=== PATIENT | male | born 1965 | race Caucasian/White ===

== ENCOUNTER 2020-04-25 | Outpatient (CLI) | payer OTHER, SELFPAY | END 2020-04-26 13:03 | disposition home or self-care (01) | LOC: LBO 05-18 11:33 | PROVIDERS: Visit Provider Preventive Medicine Undersea and Hyperbaric Medicine | DX: C01 Malignant neoplasm of base of tongue (principal) | CPT/HCPCS: 36415; 82565 ==

== ENCOUNTER → 2020-06-12 02:25 | Outpatient (CLI) | payer OTHER, SELFPAY ==
--- NOTE | 2020-06-12 14:40 | ST.MBS_ITS ---
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 Postoperative course was complicated by severe dysphagia ultimately requiring PEG placement. Adjuvant radiotherapy completed 05/09/2020. PMHx: Degenerative disc disease, lumbar; condyloma acuminatum; Lyme disease; hyperlipidemia; hemangioma of intracranial structures; chronic fatigue syndrome; degeneration of cervical intervertebral disc; androgen deficiency; daily chronic headache; insomnia; cancer of base of tongue/malignant neoplasm of tongue Previous Imaging for Comparison: 02/15/2020 - VFSE/MBSS while inpatient at [facility] s/p TORS of BOT and SCC neck dissection SUBJECTIVE: Continues to report difficulties with swallow initiation; reports success with LEVEL 4 IDDSI solid (pudding) over past few days but has also described difficulties with swallow initiation as inconsistent, not related to trialed texture per se; reports 'burning sensation' at level of hypopharynx/larynx durin g study today, endorses that this sensation also occurs at times with po intake over past few weeks. MDADI: Global score: 2 Physical-2.6 Emotional-3 Functional-3 Scores range from 1(extremely low functioning )-5(extremely high functioning) Composite score: 55.8 Scores range from 20(extremely low functioning )-100(extremely high functioning) OBJECTIVE: Videofluoroscopic Swallow Study (VFSS) was conducted in the lateral and [id number] projections by Speech-Language Pathologist, in collaboration with Radiologist, to evaluate oropharyngeal swallow function. Anatomic view under fluoroscopy: [facility] PO barium contrast trials: Oral barium water soluble contrast was administered. Specifically, Varibar thin liquid IDDSI Level 0 (40% w/v), Varibar nectar thick/mildly thick liquid IDDSI Level 2 (40% w/v), Varibar thin honey/liquidised/moderately-thick IDDSI Level 3 (40% w/v), Varibar pudding/pureed/extremely thick IDDSI Level 4 (40% w/v), tushar cracker coated in 3 mL Varibar pudding; 13 mm barium tablet - IDDSI Level 7 Regular Solid. PHYSIOLOGIC FINDINGS Oral Phase 1 Lip Closure: 0 No labial escape 2 Tongue Control: 0 cohesive bolus between tongue to palatal seal 3 Bolus Preparation/Mastication: 1 slow prolonged mashing/chewing with complete recollection 4 Bolus Transport/Lingual Motion: 0 brisk tongue movement 5 Oral residue: 1 trace residue lining oral structures 6 Initiation of pharyngeal swallow: 3 bolus head in pyriforms Pharyngeal Phase 7 Velar Elevation: 1 trace-mild column of contrast between soft palate and pharyngeal wall 8 Laryngeal Elevation: 1 minimal partial movement of thyroid cartilage with partial approximation of to epiglottic petiole 9 Anterior Hyoid Excursion: 1 partial anterior movement 10 Epiglottic Movement: 2 no inversion 11 Laryngeal Vestibule Closure: 1 incomplete; narrow column of contrast in laryngeal vestibule during swallow 12 Pharyngeal Stripping Wave: 1 present; diminished 13 Pharyngeal Contraction: 1 incomplete (pseudodiverticulae) 14 PES/UES Openin complete distension and complete duration; no obstruction of flow 15 Tongue Base Retraction: 3 wide column of contrast between TB/PW 16 Pharyngeal residue: 2 collection of residue within or on pharyngeal structures Juliann Pharyngeal Residue Severity Rating Scale (YPRS) (Mayra, et al, 2015) Vallecula Residue Severity IV Moderate 25-50% Epiglottic ligament covered Pyriform Sinus Residue Severity II Trace 1-5% Trace coating of the mucosa Esophageal Phase (partial) NOTE: This study was performed for interpretation only of the oropharyngeal and pharyngoesophageal domains of swallowing. It is not intended to diagnose any other radiologic abnormalities or substitute for a formal esophagram study. 17 Esophageal Clearance Upright Position: 0 - complete clearance, esophageal coating (question of multiple ?hypertrophies noted along cervical esophagus during swallow, anteriorly at C2 and both anteriorly+posteriorly at C5; please see series image #27) Overall 8-Point Penetration-Aspiration Scale (PAS) (Rosenbek, et al, 1996) 2 - Material enters the airway, remains above the vocal folds, and is ejected from the airway. Clinical Indicator(s) of Prandial/Postprandial Aspiration: N/A; No aspiration noted throughout study DIGEST Scale Rating (O'Romario, et al, 1999) DIGEST Score: Safety Grade 0 / Efficiency Grade 1 = 1, Overall Mild Pharyngeal Impairment (0=No Impairment, 1=Mild, 2=Moderate, 3=Severe, 4=Life Threatening) The Dynamic Imaging Grade of Swallowing Toxicity (DIGEST) Score represents a set of structured criteria primarily validated for head and neck cancer patients to grade the interaction of safety, efficiency, and overall impairment of the pharyngeal swallow, meant to assist in prioritization of targets for dysphagia treatment planning. (Edilberto, et al. Cancer. 2017;123(1):62-70) Note: Above score represents swallowing events without application of compensatory techniques Trialed Compensatory Swallow Strategies & Outcome: Maneuvers Volitional Throat Clear - successful Secondary saliva swallow x 2-3 - successful in reducing amount of vallecular residue Bolus Modifications Delivery/Alternating Consistencies - Wash with thin liquid - successful in reducing amount of vallecular residue Delivery/Via Straw - successful; (-) aspiration, only trace penetration Reduced Volume - successful Reduced Rate of Intake - no notable change Increased Viscosity - increases amount of vallecular residue, (-) penetration Dysphagia Outcome and Severity Scale (TAVO) LEVEL 3 - Full PO: modified diet and/or independence - Moderate dysphagia; 2 or more diet consistencies restricted, strategies encouraged IMPRESSIONS: Overall mild-moderate oropharyngeal dysphagia s/p extensive HNC surgical hx in February 2020 and more recently completed course of BASKET HAND WEAVER in early May 2020 with mild improvements relative to VFSE/MBSS (02/2020; available study images reviewed personally by this clinician, however given minimal amount of contrast tolerated by patient, comparison is limited); current oral phase deficits charac terized by delayed swallow initiation (bolus head in pyriform sinus during subsequent swallows, otherwise initiated with bolus head in valleculae); significant pharyngeal phase deficits characterized primarily by reduced BOT retraction and absent epiglottic inversion; reduced velar elevation, partial hyolaryngeal excursion, diminished laryngeal elevation, and reduced pharyngeal constriction also contribute to resulting penetration of less viscous consistencies during the swallow and moderate vallecular+trace pyriform sinus residue, which increases with more viscous consistencies. Of note, ?hypertrophies noted along cervical esophagus during swallow, anteriorly at C2 and both anteriorly+posteriorly at C5; please see series image #27 Patient is sensate to all residue, demonstrates volitional throat clear with penetration episodes and subsequent volitional secondary swallow(s); vocal quality does become effected over time (gurgly, wet sounding) as trials progres s, however resolves with either volitional throat clear(s) or secondary dry swallows. Swallow safety is surprisingly preserved given level of pharyngeal phase deficit(s) as outlined above; swallow efficiency is impaired, and complicated by continued report of odynophagia, 'burning sensation', and jaw tightening with prolonged mastication/trismus. Patient appears to be at low-moderate risk for potential aspiration PNA, pulmonary compromise and moderate risk for malnutrition, low risk for dehydration; diet modification, non-oral nutrition continues to be indicated at this time. Swallow prognosis is good-fair given age, radiation hx with expected level of radiation fibrosis, anatomical changes s/p HNC surgeries as outlined above, and pending patient/carepartner training in risk management as outlined. Patient appears to be a good candidate for behavioral swallow rehabilitation per motivational interview. PLAN: Diet recommendation: IDDSI 4-Pureed Solids, 0-Thin Liquids Diet texture modification is per patient's preference; to be adjusted at patient's discretion & collaboration with care team. Risk Management: Small sips, approx 5mL / teaspoon graduating to 10 mL Alternate solids/liquids as able Multiple effortful swallows per bolus (3-4x) to encourage clearance of pharyngeal stasis/residue and encourage pharyngeal muscle strengthening Control risk factors for aspiration pneumonia via (a) thorough oral hygiene & (b) maintaining physical mobility as tolerated Specialist referrals: N/A Ancillary tests: N/A Therapy: Recommend subsequent outpatient session with DATA OPERATIONS DIRECTOR to review results of today's exam and develop treatment plan as appropriate. May address the following: prerequisites for MDTP, HEP with targeted swallow exercise(s), continued progressivation of trismus therapy program Goal: N/A Follow-up exam: N/A Thank you for allowing me to take part in this patient's care. Please feel free to contact me with any questions/concerns. Nicole Magaña MA [facility]-DATA OPERATIONS DIRECTOR Speech Language Pathologist
--- NOTE | 2020-06-12 15:12 | DI.RAD_ITS ---
TECHNIQUE: Modified barium swallow was performed in conjunction with speech pathology. CONTRAST MATERIAL: Oral barium Oral water soluble contrast was administered. COMPARISON: No exams were available for comparison FINDINGS: This is not a formal esophagram. Fluoroscopy was provided during swallowing mechanism study performed our department in conjunction with the speech therapist. There did not appear to be obvious aspirati on during this study. Please see report by speech therapist IMPRESSION: No evidence of obvious aspiration. . . . Total fluoroscopy time 2 minutes and 48 seconds; cumulative dose 15.9 mGy RADIATION DOSE DELIVERED: Total fluoroscopy time 2 minutes 48 seconds; Cumulative dose 15.9 mGy
[2020-06-12] MEDS: Barium Sulfate 700 MG TAB PO (15:19)
[2020-06-12] MEDS: Barium Sulfate Oral Paste 40% W/V 230 ML TUBE 70 ML PO (15:21)
[2020-06-12] MEDS: Barium Sulfate 40% W/V 1500 CPS 250 ML BTL 50 ML PO (15:23)
[2020-06-12] MEDS: Barium Sulfate 40% W/V 240 ML BTL PO (15:24)
[2020-06-12] MEDS: Barium Sulfate 81% w/w for Oral Suspension 148 GM BTL 100 GM PO (15:26)
== END ==
PROVIDERS: PCP Physician Assistant; Visit Provider Speech-Language Pathologist
DX: R13.12 Dysphagia, oropharyngeal phase (principal); C01 Malignant neoplasm of base of tongue
CPT/HCPCS: 92526; 92611; 74221

== ENCOUNTER 2020-07-12 12:18 | Outpatient (CLI) | payer OTHER, SELFPAY ==
[2020-07-12 12:50] LABS: Abs Immature Grans 0.01 10^3/uL (0.0-0.06); Absolute Basophil Count 0.01 10^3/uL (0.0-0.2); Absolute Eosinophil Count 0.05 10^3/uL (0.0-0.7); Absolute Lymphocyte Count 0.61 10^3/uL (1.2-3.4); Absolute Monocyte Count 0.43 10^3/uL (0.1-0.8); Absolute Neutrophil Count 4.01 10^3/uL (1.2-6.7); Basophils % 0.2; HGB 13.9 g/dL (13.5-17.5); Immature Grans % 0.2; Lymphocytes % 11.9; MCHC 34.8 % (32.0-36.0); MCV 89.3 fL (80-95); MPV 9.4 fL (8.0-11.0); Monocytes % 8.4; Neutrophils % 78.3; Nucleated RBC 0 %; Platelet Count 254 10^3/uL (130-400); RBC 4.48 10^6/uL (4.36-5.78); RDW 11.9 % (11.8-14.1); RDW-SD 38.3 fL; WBC 5.12 10^3/uL (4.4-10.8)
[2020-07-12 13:05] LABS: ALT 38 U/L (16-63); AST 17 U/L (15-37); Albumin 3.6 g/dL (3.4-5.0); Alkaline Phosphatase 94 U/L (46-116); Anion Gap 6.3 mmol/L (3-11); BUN 26 mg/dL (7-18); Bilirubin, Total 0.4 mg/dL (0.2-1.0); CO2 29.7 mmol/L (21.0-32.0); CREATININE 0.9 mg/dL (0.70-1.30); Calcium 8.5 mg/dL (8.5-10.1); Chloride 107 mmol/L (98-107); Glucose 74 mg/dL (74-106); Magnesium 2.2 mg/dL (1.8-2.4); Potassium 4.3 mmol/L (3.5-5.1); Sodium 143 mmol/L (136-145); Total Protein 7.3 g/dL (6.4-8.2)
== END 2020-07-12 12:19 | disposition home or self-care (01) ==
LOC: LBO 12:20
PROVIDERS: PCP Physician Assistant; Visit Provider Preventive Medicine Undersea and Hyperbaric Medicine
DX: C01 Malignant neoplasm of base of tongue (principal)
CPT/HCPCS: 36415; 80053; 83735; 85025

== ENCOUNTER 2021-02-27 14:55 | Outpatient (CLI) | payer OTHER, SELFPAY ==
[2021-02-27 15:47] LABS: TSH 2.09 uIU/mL (0.36-3.74)
== END 2021-02-27 14:56 | disposition home or self-care (01) ==
LOC: LBO 14:57
PROVIDERS: PCP Physician Assistant; Visit Provider Preventive Medicine Undersea and Hyperbaric Medicine
DX: C01 Malignant neoplasm of base of tongue (principal)
CPT/HCPCS: 36415; 84443

== ENCOUNTER 2021-04-19 19:55 | Outpatient (CLI) | payer SELFPAY ==
[2021-04-19 18:26] LABS: CREATININE 1.3 mg/dL (0.70-1.30)
== END 2021-04-19 19:56 | disposition home or self-care (01) ==
LOC: LBO 19:57
PROVIDERS: PCP Physician Assistant; Visit Provider Preventive Medicine Undersea and Hyperbaric Medicine
DX: C01 Malignant neoplasm of base of tongue (principal)
CPT/HCPCS: 36415; 82565; 84443